=== PATIENT | male | born 1950 | race Caucasian/White ===

== ENCOUNTER 2022-06-08 09:41 | Outpatient (CLI) | payer MEDICARE, SELFPAY ==
[2022-06-08 19:41] LABS: Thyroid Stimulating Hormone 0.725 uIU/mL (0.465-4.680)
== END 2022-06-08 09:42 | disposition home or self-care (01) ==
LOC: ANHGOSHLAB 09:45
PROVIDERS: PCP Family Medicine; Visit Provider Family Medicine
DX: E03.9 Hypothyroidism, unspecified (principal)
CPT/HCPCS: 36415; 84443

== ENCOUNTER 2023-05-22 08:50 | Outpatient (CLI) | payer MEDICARE, SELFPAY ==
[2023-05-22 20:11] LABS: Alanine Aminotransferase 22 U/L (6-50); Alkaline Phosphatase 60 U/L (38-126); Anion Gap 7 mmol/L (8-16); Aspartate Amino Transferase 33 U/L (17-59); Bilirubin,Total 0.9 mg/dL (0.2-1.3); Blood Urea Nitrogen 17 mg/dL (9-20); Calcium 9.5 mg/dL (8.4-10.2); Carbon Dioxide 28 mmol/L (22-30); Chloride 105 mmol/L (98-107); Cholesterol 209 mg/dL (0-200); Estimated Glomerular Filt Rate > 60; Glucose 106 mg/dL (65-110); HDL Direct 44 mg/dL; Potassium 4.3 mmol/L (3.4-5.0); Sodium 140 mmol/L (137-145); Triglycerides 80 mg/dL (<150)
[2023-05-22 20:18] LABS: Hepatitis C Virus Antibody Negative (Negative)
[2023-05-22 20:22] LABS: LDL Cholesterol Direct 132 mg/dL
[2023-05-22 20:40] LABS: Prostate Specific Antigen 1.3 ng/mL (< OR = 4.0)
[2023-05-22 22:15] LABS: Hemoglobin A1C 5.5 % (<5.7)
== END 2023-05-22 08:51 | disposition home or self-care (01) ==
PROVIDERS: PCP Family Medicine; Visit Provider Family Medicine
DX: Z12.5 Encounter for screening for malignant neoplasm of prostate (principal); Z11.59 Encounter for screening for other viral diseases; E03.9 Hypothyroidism, unspecified; E78.5 Hyperlipidemia, unspecified; R73.03 Prediabetes
CPT/HCPCS: 36415; 80053; 80061; 83036; 84153; 84443; 86803; G0103

== ENCOUNTER 2024-03-04 07:56 | Outpatient (CLI) | payer MEDICARE, SELFPAY ==
[2024-03-04 18:12] LABS: Alanine Aminotransferase 19 U/L (6-50); Albumin Level 3.9 g/dL (3.5-5.1); Alkaline Phosphatase 61 U/L (38-126); Anion Gap 8 mmol/L (4-12); Aspartate Amino Transferase 45 U/L (17-59); Bilirubin,Total 0.8 mg/dL (0.2-1.3); Blood Urea Nitrogen 21 mg/dL (9-20); Calcium 9.1 mg/dL (8.4-10.2); Carbon Dioxide 28 mmol/L (22-30); Chloride 103 mmol/L (98-107); Cholesterol 218 mg/dL (0-200); Estimated Glomerular Filt Rate > 60; Glucose 98 mg/dL (65-110); HDL Direct 40 mg/dL; Potassium 3.8 mmol/L (3.4-5.0); Sodium 139 mmol/L (137-145); Triglycerides 101 mg/dL (<150)
[2024-03-04 18:20] LABS: Hepatitis C Virus Antibody Negative (Negative)
[2024-03-04 18:24] LABS: LDL Cholesterol Direct 145 mg/dL
[2024-03-04 18:45] LABS: Hemoglobin A1C 5.8 % (<5.7)
== END 2024-03-04 07:57 | disposition home or self-care (01) ==
PROVIDERS: PCP Family Medicine; Visit Provider Family Medicine
DX: E78.2 Mixed hyperlipidemia (principal); E03.9 Hypothyroidism, unspecified; R73.03 Prediabetes; Z11.59 Encounter for screening for other viral diseases
CPT/HCPCS: 36415; 80053; 80061; 83036; 84443; 86803

== ENCOUNTER 2024-05-18 10:02 | Outpatient (CLI) | payer MEDICARE, SELFPAY ==
[2024-05-18 19:57] LABS: Prostate Specific Antigen 1.3 ng/mL (< OR = 4.0)
== END 2024-05-18 10:03 | disposition home or self-care (01) ==
PROVIDERS: PCP Family Medicine; Visit Provider Nurse Practitioner Family
DX: Z12.5 Encounter for screening for malignant neoplasm of prostate (principal); Z11.59 Encounter for screening for other viral diseases
CPT/HCPCS: 36415; 84153; G0103

== ENCOUNTER 2024-11-20 09:21 | Outpatient (CLI) | payer MEDICARE, SELFPAY ==
--- OUTSIDE RECORDS SUMMARY | 2024-11-20 09:32 | XMS_ITS | Clinical Summary ---
Author Organization [address] Address [address] [place] [address] Care Team Providers Care Floor Renovator Name Role Phone Dara Palumbo MD Primary Care Provider + Allergies No known active allergies Medications sildenafil, antihypertensive, (REVATIO) 20 mg tabletIndications:P ulmonary Arterial Hypertension 11 07/21/2018 Active Active Problems No known active problems Surgical History Surgery Date Site/Laterality Comments HERNIA REPAIR THYROID SURGERY Medical History Medical History Date Comments Thyroid disease Family History Medical History Relation Name Comments Cancer Mother Relation Name Status Comments Mother Social History Tobacco Use Types Packs/Day Years Used Date Smoking Tobacco: Former Smokeless Tobacco: Former Alcohol Use Standard Drinks/Week Comments No 0 (1 standard drink = 0.6 oz pur e alcohol) Personal Safety Answer Date Recorded Getting School Help Needed Not on file 09/20 Sex and Gender Information Value Date Recorded Sex Assigned at Not on file Legal Sex Male 11:56 AM EMERGENCY MEDICINE MEDICAL DIRECTOR Gender Identity Not on file Sexual Orientation Not on file Obstetrics History Last Filed Vital Signs Vital Sign [place] Time Taken Comments Blood Pressure 131/81 08/07/2018 1:22 PM EMERGENCY MEDICINE MEDICAL DIRECTOR Pulse 82 08/07/2018 1:22 PM EMERGENCY MEDICINE MEDICAL DIRECTOR Temperature - - Respiratory Rate - - Oxygen Saturation - - Inhaled Oxygen Concentration - - Weight 99.3 kg (219 lb) 08/07/2018 1:22 PM EMERGENCY MEDICINE MEDICAL DIRECTOR Height 175.3 cm (5' 9 ) 08/07/2018 1:22 PM EMERGENCY MEDICINE MEDICAL DIRECTOR Body Mass Index 32.34 08/07/2018 1:22 PM EMERGENCY MEDICINE MEDICAL DIRECTOR Plan of Treatment Not on file Insurance AETNA MEDICARE Care Teams Floor Renovator Relationship Specialty Start Date End Date Dara Palumbo MD PCP - General Family Medicine 08/04/18
--- OUTSIDE RECORDS SUMMARY | 2024-11-20 09:32 | XMS_ITS | Referral Summary ---
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 Active Problems No known active problems Social History Tobacco Use Types Packs/Day Years Used Date Smoking Tobacco: Former Smokeless Tobacco: Former Alcohol Use Standard Drinks/Week Comments No 0 (1 standard drink = 0.6 oz pur e alcohol) Personal Safety Answer Date Recorded Getting School Help Needed Not on file 09/20 Sex and Gender Information Value Date Recorded Sex Assigned at Not on file Legal Sex Male 11:56 AM CNC OPERATOR Gender Identity Not on file Sexual Orientation Not on file Last Filed Vital Signs Vital Sign [place] Time Taken Comments Blood Pressure 131/81 08/07/2018 1:22 PM CNC OPERATOR Pulse 82 08/07/2018 1:22 PM CNC OPERATOR Temperature - - Respiratory Rate - - Oxygen Saturation - - Inhaled Oxygen Concentration - - Weight 99.3 kg (219 lb) 08/07/2018 1:22 PM CNC OPERATOR Height 175.3 cm (5' 9 ) 08/07/2018 1:22 PM CNC OPERATOR Body Mass Index 32.34 08/07/2018 1:22 PM CNC OPERATOR Plan of Treatment Not on file Insurance AETNA MEDICARE Care Teams Vp Respiratory Relationship Specialty Start Date End Date Dara Palumbo MD PCP - General Family Medicine 08/04/18
--- OUTSIDE RECORDS SUMMARY | 2024-11-20 09:32 | XMS_ITS | Encounter Summary ---
Author Organization [facility] Address [address] [place] [address] Care Team Providers Care Cnc Manager Name Role Phone Dony Palumbo MD Primary Care Provider +1- [phone] Encounter Details Date Type Department Care Team (Late st Contact Info) Description 07/15/2001 Outpatient Historical [facility] MRI DEPT Jorge Hwang MD [address] [place] [id number] SIMPLE GOITER (Primary Dx) Social History Tobacco Use Types Packs/Day Years Used Date Smoking Tobacco: Never Assessed Sex and Gender Information Value Date Recorded Sex Assigned at Not on file Legal Sex Male 4:59 AM LABELS MOLDER Gender Identity Not on file Sexual Orientation Not on file documented as of this encounter Plan of Treatment Not on file documented as of this encounter Visit Diagnoses Diagnosis Goiter, specified as simple- Primary documented in this encounter Care Teams Cnc Manager Relationship Specialty Start Date End Date Dony Palumbo MD [address] [place] [address] [address] [place] [address] PCP - General 07/25/01 documented as of this encounter
--- OUTSIDE RECORDS SUMMARY | 2024-11-20 09:32 | XMS_ITS | Encounter Summary ---
Author Organization [employer] [facility] Address 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
--- OUTSIDE RECORDS SUMMARY | 2024-11-20 09:32 | XMS_ITS | Clinical Summary ---
Author Organization [facility] Address [address] [facility] Attn: Epic Prelude ADT JUNITO CODY [id number] Care Team Providers Care Dry Dip Worker Name Role Phone Dony Palumbo MD Primary Care Provider +1- [phone] Social History Tobacco Use Types Packs/Day Years Used Date Smoking Tobacco: Never Assessed Sex and Gender Information Value Date Recorded Sex Assigned at Not on file Legal Sex Male 4:59 AM STAVE MACHINE TENDER Gender Identity Not on file Sexual Orientation Not on file Plan of Treatment Health Maintenance Due Date Last Done Comments DTAP/TDAP/TD VACCINES (1 - Tdap) 1969 COLORECTAL SCREENING 1995 Colorectal Cancer Screening 1995 FIT-DNA Q 3 years 1995 FIT/FOBT Q 1 year 1995 Flex Sig/CT Colonography Q 5 years 1995 PNEUMOCOCCAL VACCINE 50+ YEARS (1 of 1 - PCV) 04/10/20 00 ZOSTER VACCINE (1 of 2) 2000 INFLUENZA VACCINE (#1) 2024 RSV VACCINE (60+ or ) (1 - 1-dose 75+ series) 2025 Care Teams Dry Dip Worker Relationship Specialty Start Date End Date Dony Palumbo MD [address] [place] [address] [address] [place] [address] PCP - General 07/25/01
[2024-11-20 12:29] LABS: Alanine Aminotransferase 18 U/L (6-50); Albumin Level 4.1 g/dL (3.5-5.1); Alkaline Phosphatase 63 U/L (38-126); Anion Gap 8 mmol/L (4-12); Aspartate Amino Transferase 37 U/L (17-59); Bilirubin,Total 0.8 mg/dL (0.2-1.3); Blood Urea Nitrogen 25 mg/dL (9-20); Calcium 9.3 mg/dL (8.4-10.2); Carbon Dioxide 27 mmol/L (22-30); Chloride 104 mmol/L (98-107); Cholesterol 224 mg/dL (0-200); Estimated Glomerular Filt Rate > 60; Glucose 97 mg/dL (65-110); HDL Direct 45 mg/dL; Potassium 4.3 mmol/L (3.4-5.0); Sodium 139 mmol/L (137-145); Triglycerides 105 mg/dL (<150)
[2024-11-20 12:40] LABS: LDL Cholesterol Direct 133 mg/dL
[2024-11-20 12:58] LABS: Thyroid Stimulating Hormone 0.874 uIU/mL (0.465-4.680)
[2024-11-20 13:27] LABS: Hepatitis C Virus Antibody Negative (Negative)
[2024-11-20 13:28] LABS: Hemoglobin A1C 5.6 % (<5.7)
== END 2024-11-20 09:22 | disposition home or self-care (01) ==
PROVIDERS: PCP Family Medicine; Visit Provider Family Medicine
DX: E03.9 Hypothyroidism, unspecified (principal); E78.2 Mixed hyperlipidemia; R73.03 Prediabetes; Z11.59 Encounter for screening for other viral diseases
CPT/HCPCS: 36415; 80053; 80061; 83036; 84443; 86803

== ENCOUNTER 2024-11-27 12:01 | Outpatient (NON) | payer MEDICARE, SELFPAY ==
--- OUTSIDE RECORDS SUMMARY | 2024-12-01 12:03 | XMS_ITS | Clinical Summary ---
Author Organization [address] Address [address] [place] [address] Care Team Providers Care Clinical Partner Name Role Phone Dara Palumbo MD Primary [...] on file Legal Sex Male 11:56 AM FLOOR TRADER Gender Identity Not on file Sexual Orientation Not on file Obstetrics History Last Filed Vital Signs Vital Sign [place] Time Taken Comments Blood Pressure 131/81 08/07/2018 1:22 PM FLOOR TRADER Pulse 82 08/07/2018 1:22 PM FLOOR TRADER Temperature - - Respiratory Rate - - Oxygen Saturation - - Inhaled Oxygen Concentration - - Weight 99.3 kg (219 lb) 08/07/2018 1:22 PM FLOOR TRADER Height 175.3 cm (5' 9 ) 08/07/2018 1:22 PM FLOOR TRADER Body Mass Index 32.34 08/07/2018 1:22 PM FLOOR TRADER Plan of Treatment Not on file Insurance AETNA MEDICARE Care Teams Clinical Partner Relationship Specialty Start Date End Date Dara Palumbo MD PCP - General Family Medicine 08/04/18
--- OUTSIDE RECORDS SUMMARY | 2024-12-01 12:03 | XMS_ITS | Referral Summary ---
Author Organization [address] Address [address] [place] [address] Care Team Providers Care Clutch Operator Name Role Phone Dara Palumbo MD Primary [...] on file Legal Sex Male 11:56 AM BOTTLING SUPERVISOR Gender Identity Not on file Sexual Orientation Not on file Last Filed Vital Signs Vital Sign [place] Time Taken Comments Blood Pressure 131/81 08/07/2018 1:22 PM BOTTLING SUPERVISOR Pulse 82 08/07/2018 1:22 PM BOTTLING SUPERVISOR Temperature - - Respiratory Rate - - Oxygen Saturation - - Inhaled Oxygen Concentration - - Weight 99.3 kg (219 lb) 08/07/2018 1:22 PM BOTTLING SUPERVISOR Height 175.3 cm (5' 9 ) 08/07/2018 1:22 PM BOTTLING SUPERVISOR Body Mass Index 32.34 08/07/2018 1:22 PM BOTTLING SUPERVISOR Plan of Treatment Not on file Insurance AETNA MEDICARE Care Teams Clutch Operator Relationship Specialty Start Date End Date Dara Palumbo MD PCP - General Family Medicine 08/04/18
--- OUTSIDE RECORDS SUMMARY | 2024-12-01 12:03 | XMS_ITS | Encounter Summary ---
Author Organization [facility] Address [address] [place] [address] Care Team Providers Care Homemaking Rehabilitation Consultant Name Role Phone Dony Palumbo MD Primary Care Provider +1- [phone] Encounter Details Date Type Department Care Team (Late st Contact Info) Description 07/15/2001 Outpatient Historical [facility] MRI DEPT Jorge Hwang MD [address] [place] [phone] SIMPLE GOITER (Primary Dx) Social History Tobacco Use Types Packs/Day Years Used Date Smoking Tobacco: Never Assessed Sex and Gender Information Value Date Recorded Sex Assigned at Not on file Legal Sex Male 4:59 AM OUTDOOR ADVENTURE LEADER Gender Identity Not on file Sexual Orientation Not on file documented as of this encounter Plan of Treatment Not on file documented as of this encounter Visit Diagnoses Diagnosis Goiter, specified as simple- Primary documented in this encounter Care Teams Homemaking Rehabilitation Consultant Relationship Specialty Start Date End Date Dony Palumbo MD [address] [place] [address] [address] [place] [address] PCP - General 07/25/01 documented as of this encounter
--- OUTSIDE RECORDS SUMMARY | 2024-12-01 12:03 | XMS_ITS | Clinical Summary ---
Author Organization [facility] Address [address] [facility] Attn: Epic Prelude ADT JUNITO CODY [address] Care Team Providers Care Spray Booth Operator Name Role Phone Dony Palumbo MD Primary Care Provider +1- [phone] Social History Tobacco Use Types Packs/Day Years Used Date Smoking Tobacco: Never Assessed Sex and Gender Information Value Date Recorded Sex Assigned at Not on file Legal Sex Male 4:59 AM LEAD CARE MANAGER Gender Identity Not on file Sexual Orientation [...] - 1-dose 75+ series) 2025 Care Teams Spray Booth Operator Relationship Specialty Start Date End Date Dony Palumbo MD [address] [place] [address] [address] [place] [address] PCP - General 07/25/01
--- OUTSIDE RECORDS SUMMARY | 2024-12-01 12:03 | XMS_ITS | Encounter Summary ---
Author Organization [employer] [facility] Address [address] [place] [address] Care Team Providers Care Supervisor Hot Dip Plating Name Role Phone Dony Palumbo MD Primary Care Provider +1- [phone] Encounter Details Date Type Department Care Team (Latest Contact Info) Description 07/25/2001 Outpatient Historical [facility] Jorge Hwang MD [address] [place] [address] BENIGN NEOPLASM THYROID (Primary Dx) Social History Tobacco Use Types Packs/Day Years Used Date Smoking Tobacco: Never Assessed Sex and Gender Information Value Date Recorded Sex Assigned at Not on file Legal Sex Male 4:59 AM MARKET ANALYSIS DIRECTOR Gender Identity Not on file Sexual Orientation Not on file documented as of this encounter Plan of Treatment Not on file documented as of this encounter Visit Diagnoses Diagnosis Benign neoplasm of thyroid glands- Primary documented in this encounter Care Teams Supervisor Hot Dip Plating Relationship Specialty Start Date End Date Dony Palumbo MD [address] [place] [address] [address] [place] [address] PCP - General 07/25/01 documented as of this encounter
== END 2024-11-27 12:02 | disposition home or self-care (01) ==
LOC: ANHLAB 12-01 12:01
PROVIDERS: PCP Family Medicine; Visit Provider Family Medicine
DX: D22.70 Melanocytic nevi of unspecified lower limb, including hip (principal); D03 Melanoma in situ
CPT/HCPCS: 88305

== ENCOUNTER 2025-05-26 15:25 | Emergency (ER) | payer MEDICARE, SELFPAY ==
--- NOTE | 2025-05-26 16:36 | PC.NURSE ---
1523- vfib, 1 shock 200Joules, EPI, continued vfib- CPR resumed 1524- 18 g LEFT AC placed, 18 g RIGHT AC placed 1525- vfib, 1 shock 200Joules, continued vfib- CPR resumed 1526- EPI 1527- ETT placed, a 7.5 at 28 at the lip, breath sounds noted bilaterally, color change noted. vfib, 1 shock 200Joules, continued vfib, CPR resumed. 1528- EPI 1529- 1 amp BICARB 1530- AMIO 150 1531- EPI 1533- vfib, 1 shock 200Joules, continued vfib, CPR resumed 1534- 1 EPI 1535- vfib, 1 shock 200Joules, vfib continued, CPR resumed 1537- 1 EPI, ultrasound utilized by EDP- no cardiac movement noted 1540- 1 EPI Time of was called at [address] Gavin ARROYO
--- NOTE | 2025-05-26 16:43 | ED.CPR ---
HPI - CPR General Chief Complaint: Cardiac Arrest/CPR Stated Complaint: cardiac arrest Time Seen by Provider: 05/26/25 15:47 History of Present Illness HPI narrative: Pt was reportedly deer hunting and called and said he was having CP and she called 911. On EMS arrival pt was alert and oriented but then became unresponsive and pulseless. CPR was started, I/O placed, and igel airway established. Pt got epi x [address] in [address]. Related Data Home Medications ?Medication ?Instructions ?Recorded ?Confirmed ?Last Taken ?Type aspirin 325 mg tablet 325 mg PO DAILY 06/26/19 05/24/25 07/11/19 History naproxen sodium 220 mg capsule 220 mg PO PRN PRN Pain 06/26/19 05/24/25 Unknown History (Aleve) levothyroxine 112 mcg tablet 112 mcg PO DAILY 12/31/23 05/24/25 Unknown History naproxen 250 mg tablet 250 mg PO BID PRN Pain 12/31/23 05/24/25 Unknown History Allergies Allergy/AdvReac Type Severity Reaction Status Date / Time niacin (From [facility] Allergy Severe Rash Verified 05/24/25 08:23 Extended-Release) Review of Systems Review of Systems: ROS unobtainable: Yes unobtainable due to medical condition FOR[facility] Past Medical History Medical History Hypothyroidism Shingles Nontraumatic rupture of muscle bicep Surgical History Surgical History H/O hernia repair History of inguinal hernia repair (~1997) History of inguinal hernia repair (~1971) Family History Family History Father Family history of cardiovascular disease Family history of malignant neoplasm Mother Family history of malignant neoplasm of bone Family history of lymphoma Social History Social History Smoking status: Former smoker Smoking end date: 07/08/73 Additional smoking assessment comments: 1973 Alcohol intake: never Substance use: never Lack of Transportation: No Lack of Food: Never True Current Housing: I Have Housing Concerned About Future Housing: No Difficulty Paying Gas/Electric Bills: No Difficulty Paying for Meds: No Currently Unemployed: No Education: Decline to Answer Difficulty w/ Childcare or Family Care: Decline to Answer Living arrangements: with family Gender identity (if verbalized by the patient): Male Exam Const: Other: unresponsive HENMT: Head: normal to inspection Eyes: Other: pupils fixed and dilated Chest: Other: darin in place Resp: Other: bs with bagged resp only Cardio: Other: no pulse or heart beat GI: GI Palp: Yes Soft to palpation Skin: Other: pale cool Extrem: General: no clubbing, cyanosis or edema Course Course Emergency Course: Pt arrived in full arrest. CPR maintained. Pt had v fib on monitor, shocked. Pt given several rounds of epi, amiodarone bolus, bicarb bolus. Defionitive airway established with 7.5 ETT. Bedside sono showed no cardiac activity. brought into room. She asked to stop. code called. For times and doses see code sheet. Dr Palumbo contacted and will sign cert. Vital Signs Vital signs: Vital Signs Oxygen Delivery Bag Valve Mask 05/26/25 16:22 Oxygen Delivery Bag Valve Mask 05/26/25 16:22 Procedures Intubation Intubation #1: Intubation Date: 05/26/25 Laryngoscope: fiber optic video scope Assist Device Used: fiber optic device Tube Size (cm): 7.5 Method of Intubation: orotracheal Number of Attempts: 2 Tube Secured Depth (cm): 23 Tube Secured Location: lips Tube Placement Confirmation: visualized tube passing through cords, equal breath sounds bilaterally and confirmation by capnometry Critical Care Time Critical Care Time Critical Care Time: Yes Total Critical Care Time: 35 Discharge Plan Discharge Clinical Impression: Cardiac arrest Patient Disposition: Condition: Patient Language: Citizen Of [place] Prescriptions: No Action levothyroxine 112 mcg tablet 112 mcg PO DAILY naproxen 250 mg Tablet 250 mg PO BID PRN (Reason: Pain) albuterol sulfate 90 mcg/actuation HFA aerosol inhaler 2 puff inhalation QID PRN (Reason: shortness of breath or wheezing) Qty: 6.7 0RF aspirin 325 mg Tablet 325 mg PO DAILY naproxen sodium [Aleve] 220 mg Capsule 220 mg PO PRN PRN (Reason: Pain) sildenafil (pulm.hypertension) 20 mg tablet 20 mg PO DAILY PRN (Reason: sexual activity) Qty: 30 5RF levothyroxine 112 mcg tablet See Rx Instructions .ROUTE .COMPLEX Qty: 90 1RF Dose Instruction: Take 1 tablet by mouth once daily Rx Instructions: Take 1 tablet by mouth once daily Follow-up/Referrals: Dony Palumbo MD [Primary Care Provider, Family Practice]
--- NOTE | 2025-05-26 19:20 | PC.NURSE ---
Jennifer time: 1914
--- NOTE | 2025-05-26 20:00 | PC.NURSE ---
[address] Palumbo contacted [phone] [employer] Top Hat Body Maker-Meli notified [phone] [facility] Soheila notified [phone]
--- OUTSIDE RECORDS SUMMARY | 2025-05-27 00:12 | XMS_ITS | Encounter Summary ---
Author Organization [facility] Address [address] [place] [address] Care Team Providers Care Senior Php Software Developer Name Role Phone Dony Palumbo MD Primary Care Provider +1- [phone] Encounter Details Date Type Department Care Team (Late st Contact Info) Description 07/15/2001 Outpatient Historical HIS MRI DEPT Jorge Hwang MD [address] [place] [address] SIMPLE GOITER (Primary Dx) Social History Tobacco Use Types Packs/Day Years Used Date Smoking Tobacco: Never Assessed Sex and Gender Information Value Date Recorded Sex Assigned at Not on file Legal Sex Male 4:59 AM RECEPTIONIST/TELEPHONE OPERATOR Gender Identity Not on file Sexual Orientation Not on file documented as of this encounter Plan of Treatment Not on file documented as of this encounter Visit Diagnoses Diagnosis Goiter, specified as simple- Primary documented in this encounter Care Teams Senior Php Software Developer Relationship Specialty Start Date End Date Dony Palumbo MD [address] [place] [address] [address] [place] [address] PCP - General 07/25/01 documented as of this encounter
--- OUTSIDE RECORDS SUMMARY | 2025-05-27 00:12 | XMS_ITS | Clinical Summary ---
Author Organization [address] Address [address] [place] [address] Care Team Providers Care Airbrush Artist Name Role Phone Dara Palumbo MD Primary [...] on file Legal Sex Male 11:56 AM LIBRARY CLERK TALKING BOOKS Gender Identity Not on file Sexual Orientation Not on file Last Filed Vital Signs Vital Sign [place] Time Taken Comments Blood Pressure 131/81 08/07/2018 1:22 PM LIBRARY CLERK TALKING BOOKS Pulse 82 08/07/2018 1:22 PM LIBRARY CLERK TALKING BOOKS Temperature - - Respiratory Rate - - Oxygen Saturation - - Inhaled Oxygen Concentration - - Weight 99.3 kg (219 lb) 08/07/2018 1:22 PM LIBRARY CLERK TALKING BOOKS Height 175.3 cm (5' 9) 08/07/2018 1:22 PM LIBRARY CLERK TALKING BOOKS Body Mass Index 32.34 08/07/2018 1:22 PM LIBRARY CLERK TALKING BOOKS Plan of Treatment Not on file Insurance AETNA MEDICARE Care Teams Airbrush Artist Relationship Specialty Start Date End Date Dara Palumbo MD PCP - General Family Medicine 08/04/18
--- OUTSIDE RECORDS SUMMARY | 2025-05-27 00:12 | XMS_ITS | Clinical Summary ---
Author Organization [facility] Address [address] [facility] Attn: Epic Prelude ADT [place]UNITO CODY [address] Care Team Providers Care Injury Prevention Coordinator Name Role Phone Dony Palumbo MD Primary Care Provider +1- [phone] Social History Tobacco Use Types Packs/Day Years Used Date Smoking Tobacco: Never Assessed Sex and Gender Information Value Date Recorded Sex Assigned at Not on file Legal Sex Male 4:59 AM FIELD MARKETING TEAM LEADER Gender Identity Not on file Sexual [...] (1 of 2) 2000 INFLUENZA VACCINE (#1) 2025 RSV VACCINE (60+ or ) (1 - 1-dose 75+ series) 2025 Care Teams Injury Prevention Coordinator Relationship Specialty Start Date End Date Dony Palumbo MD [address] [place] [address] [address] [place] [address] PCP - General 07/25/01
--- OUTSIDE RECORDS SUMMARY | 2025-05-27 00:12 | XMS_ITS | Encounter Summary ---
Author Organization [facility] Address [address] [place] [address] Care Team Providers Care Payer Specialist Name Role Phone Dony Palumbo MD Primary Care Provider +1- [phone] Encounter Details Date Type Department Care Team (Latest Contact Info) Description 07/25/2001 Outpatient Historical [facility] Jorge Hwang MD [address] [place] [address] BENIGN NEOPLASM THYROID (Primary Dx) Social History Tobacco Use Types Packs/Day Years Used Date Smoking Tobacco: Never Assessed Sex and Gender Information Value Date Recorded Sex Assigned at Not on file Legal Sex Male 4:59 AM MEDICAL PRACTICE MANAGER Gender Identity Not on file Sexual Orientation Not on file documented as of this encounter Plan of Treatment Not on file documented as of this encounter Visit Diagnoses Diagnosis Benign neoplasm of thyroid glands- Primary documented in this encounter Care Teams Payer Specialist Relationship Specialty Start Date End Date Dony Palumbo MD [address] [place] [address] [address] [place] [address] PCP - General 07/25/01 documented as of this encounter
== END 2025-05-26 19:17 | disposition expired ==
PROVIDERS: Emergency Provider Emergency Medicine; PCP Family Medicine
DX: I46.9 Cardiac arrest, cause unspecified (principal); E03.9 Hypothyroidism, unspecified; Z87.891 Personal history of nicotine dependence
CPT/HCPCS: 31500; 92950; 99285; J0168; J0282